=== PATIENT | female | born 1945 | race Caucasian/White ===

== ENCOUNTER 2018-12-10 09:26 | Day surgery (SDC) | payer BC ==
[2018-12-10] MEDS ORDERED: PROPOFOL 20 ML (10:50)
[2018-12-10] MEDS ORDERED: ONDANSETRON 4 MG INJ IV (12:00)
== END 2018-12-10 14:11 | disposition home or self-care (01) ==
LOC: GIL 09:26
DX: Z12.11 Encounter for screening for malignant neoplasm of colon (principal); K64.8 Other hemorrhoids; K21.9 Gastro-esophageal reflux disease without esophagitis; E78.5 Hyperlipidemia, unspecified; E03.9 Hypothyroidism, unspecified
CPT/HCPCS: 43239; 88305